=== PATIENT | female | born 1975 | race Caucasian/White ===

== ENCOUNTER 2024-08-13 10:36 | Emergency (ER) | payer OTHER, SELFPAY ==
[2024-08-13 10:47] VITALS: BP 98/61
--- NOTE | 2024-08-13 10:51 | ED.GENMED ---
ED Provider Triage
<Jared Vazquez PA-C - Last Filed: 08/13/24 10:52>
-
Patient seen by provider in Triage?: Seen in Triage
Attestation: A medical screening examination has been initiated by a qualified medical provider. Based on the assessment performed at this time, it has been determined that an emergent medical condition may exist and the patient has been informed
that further medical evaluation and possible additional diagnostic testing may be needed.
HPI: 49-year-old female presenting to the ER for evaluation of palpitations, shortness of breath and chest discomfort that started earlier today. No fevers or infectious symptoms. EKG done in triage shows SVT with a rate of 160 bpm. Patient
brought immediately back into the ER for further evaluation.
GENERAL: Alert , in no apparent distress but does appear uncomfortable.
EYE: No visual abnormalities.
NECK: Trachea midline
ENT: No visible abnormalities.
LUNGS: No acute respiratory distress
NEUROLOGICAL: Alert and oriented
SKIN: Skin intact. No visible changes.
MUSCULOSKELETAL: Moving extremities normally
PSYCH: Normal and appropriate interaction.
This is a medical evaluation conducted in person to initiate diagnostic evaluation and provide initial therapeutics. Please see further documentation by the treating clinician.
History of Present Illness
<Jared Vazquez PA-C - Last Filed: 08/13/24 10:52>
General
Chief Complaint: Chest Pain
Time Seen by Provider: 08/13/24 11:25
<Emiliano Johnson DO - Last Filed: 08/13/24 13:45>
General
Source: patient and spouse
Exam Limitations: none
Nursing documentation reviewed up to this point in time: agreed with
History of Present Illness
History of Present Illness:
49-year-old female presents to the emergency department due to becoming short of breath, pale and diaphoretic while at work. She has a history of SVT in the past while hospitalized. She denies any other symptoms.
Past History
<Emiliano Johnson, DO - Last Filed: 08/13/24 13:45>
Past History
ED Past Medical History: Other (SVT)
ED Past Surgical History: Cholecystectomy
Social History
Tobacco: Non-smoker
Alcohol: None
Drug: None
Personal:
Living: with family
Employment: Employed
Review of Systems
<Emiliano Johnson, DO - Last Filed: 08/13/24 13:45>
Review of Systems
Allergies reviewed?: Yes
All Other Systems: Not applicable
Constitutional: Reports no symptoms
EENT: Reports no symptoms
Respiratory: Reports trouble breathing
Cardiac: Reports no symptoms
ABD/GI: Reports no symptoms
: Reports no symptoms
Musculoskeletal: Reports no symptoms
Skin: Reports no symptoms
Neurological: Reports dizzy
Endocrine: Reports no symptoms
Hematologic/Lymphatic: Reports no symptoms
Psychiatric: Reports no symptoms
Phy Exam
<Emiliano Johnson, DO - Last Filed: 08/13/24 13:45>
Physical Exam
Physical Exam:
Physical Exam
General: no apparent distress, not acutely ill
Neck: supple. no meningeal signs. normal posterior pharynx
Heart: s1/s2 tachycardia, no murmur. equal radial
pulses.
HEENT: Pupils equal round reactive to light, EOMI
Lungs: no acute respiratory distress. clear bilaterally
Abdomen: normal bowel sounds. not tender. no CVAT
Neuro: alert and oriented. no focal neurological deficits cranial nerves II through XII intact
Skin: no rash
Psychiatric: well kept. interactive and cooperative
Extremities: no edema. no calf tenderness. negative homans. good distal pulses
Scores
<Emiliano Johnson, DO - Last Filed: 08/13/24 13:45>
Heart Score for Chest Pain Patients
STEMI patient?: Not applicable
Course
<Jared Vazquez PA-C - Last Filed: 08/13/24 10:52>
Orders/Labs/Results
Orders:
Orders
08/13/24 10:37
EKG [Electrocardiogram (*1)] Urgent
Reason for Study: Chest Pain
EKG- Treatment ONCE
08/13/24 11:24
Complete Blood Count/With Diff Urgent
08/13/24 11:34
Adenosine [Adenocard] 18 mg .ROUTE .STK-MED ONE
08/13/24 11:37
Adenosine [Adenocard] 6 mg IV NOW STA
08/13/24 11:39
Electrocardiogram (*1) Urgent
Reason for Study: Palpitations
EKG- Treatment ONCE
08/13/24 11:45
Comprehensive Metabolic Panel Urgent
TSH Reflex To Free T4 Urgent
Abnormal Lab Results
08/13/24 08/13/24
11:24 11:45
WBC 13.9 H 10^3/uL
(4.8-10.8)
Abs Immat Gran (auto) 0.1 H 10^3/uL
(0-0.05)
Absolute Neuts (auto) 10.3 H 10^3/uL
(1.4-6.5)
Absolute Monos (auto) 0.7 H 10^3/uL
(0.1-0.6)
Immature Gran % 0.6 H %
(0-0.5)
Lymphocytes % 19.6 L %
(20.5-51.1)
Glucose 165 H mg/dl
(70-99)
Total Protein 5.9 L g/dl
(6.3-8.2)
Albumin 3.3 L g/dl
(3.5-5.0)
08/13/24 11:24
08/13/24 11:45
Vital Signs
Initial and Last Documented VS:
Initial Vital Signs
Temp Pulse Resp BP Pulse Ox
98.9 F 160 20 98/61 99
08/13/24 10:47 08/13/24 10:47 08/13/24 10:47 08/13/24 10:47 08/13/24 10:47
Last Documented Vital Signs
Temp Pulse Resp BP Pulse Ox
98.9 F 156 12 99/71 97
08/13/24 10:47 08/13/24 11:37 08/13/24 11:37 08/13/24 11:37 08/13/24 11:37
<Emiliano Johnson, DO - Last Filed: 08/13/24 13:45>
Orders/Labs/Results
Orders:
Orders
08/13/24 10:37
EKG [Electrocardiogram (*1)] Urgent
Reason for Study: Chest Pain
EKG- Treatment ONCE
08/13/24 11:24
Complete Blood Count/With Diff Urgent
08/13/24 11:34
Adenosine [Adenocard] 18 mg .ROUTE .STK-MED ONE
08/13/24 11:37
Adenosine [Adenocard] 6 mg IV NOW STA
08/13/24 11:39
Electrocardiogram (*1) Urgent
Reason for Study: Palpitations
EKG- Treatment ONCE
08/13/24 11:45
Comprehensive Metabolic Panel Urgent
TSH Reflex To Free T4 Urgent
Abnormal Lab Results
08/13/24 08/13/24
11:24 11:45
WBC 13.9 H 10^3/uL
(4.8-10.8)
Abs Immat Gran (auto) 0.1 H 10^3/uL
(0-0.05)
Absolute Neuts (auto) 10.3 H 10^3/uL
(1.4-6.5)
Absolute Monos (auto) 0.7 H 10^3/uL
(0.1-0.6)
Immature Gran % 0.6 H %
(0-0.5)
Lymphocytes % 19.6 L %
(20.5-51.1)
Glucose 165 H mg/dl
(70-99)
Total Protein 5.9 L g/dl
(6.3-8.2)
Albumin 3.3 L g/dl
(3.5-5.0)
08/13/24 11:24
08/13/24 11:45
Vital Signs
Initial and Last Documented VS:
Initial Vital Signs
Temp Pulse Resp BP Pulse Ox
98.9 F 160 20 98/61 99
08/13/24 10:47 08/13/24 10:47 08/13/24 10:47 08/13/24 10:47 08/13/24 10:47
Last Documented Vital Signs
Temp Pulse Resp BP Pulse Ox
98.9 F 156 12 99/71 97
08/13/24 10:47 08/13/24 11:37 08/13/24 11:37 08/13/24 11:37 08/13/24 11:37
<Emiliano Johnson, DO - Last Filed: 08/13/24 13:45>
MDM/Problems Addressed
Differential Diagnosis Includes:
A-fib, SVT
MDM/Problems Addressed:
49-year-old female with SVT, converted after adenosine. Stable for discharge. Afebrile. Mild leukocytosis. No other symptoms.
Chronic conditions affecting care: Arrhythmia
Acute Exacerbation and/or Progression of Chronic Illness: Arrhythmia
<Emiliano Johnson, DO - Last Filed: 08/13/24 13:45>
*Pulse Oximetry
Patient hypoxic: no
*EKG
Interpreted by ED Provider?: Yes
EKG Intrepretation Date: 08/13/24
EKG Intrepretation Time: 10:45
Interpretation: abnormal
Comparison EKG: no comparison EKG present
Heart Rate: 164
Rate: tachycardiac
Rhythm: SVT
[place]: normal axis
Interval: normal interval
QRS Pattern: normal QRS
Ischemia: non-specific ST changes
*Remote Broadcast Technician Interpretation
Rate: tachycardiac
Interpretation: abnormal
Heart Rate: 165
Rhythm: SVT
*Critical Care Note
Total Time (30-74mins, 75-104mins- exclusive of procedures): Not Applicable
<Emiliano Johnson, - Last Filed: 08/13/24 13:45>
Patient Management
Social determinants of health affecting care: Living situation
Escalation/DeEscalation of care consider admission/obs:
Admit not indicated
ED Attending Note
<Jared Vazquez PA-C - Last Filed: 08/13/24 10:52>
-
Portions of this chart may have been created with voice recognition software.� Occasional wrong word or��sound alike� substitutions may have occurred due to the inherent limitations of voice recognition software.
Discharge Plan
Departure
Patient Disposition: Home (Routine Discharge)
Date of Disposition: 08/13/24
Time of Disposition: 13:45
Patient with high blood pressure during this ER visit?: No
Condition: Good
Discharge Problem:
SVT (supraventricular tachycardia)
Instructions: Supraventricular tachycardia (SVT)
Prescriptions:
No Action
docusate sodium 100 mg Capsule
100 mg PO BID Qty: 0 0RF
diltiazem HCl 120 mg Capsule,Extended Release 24hr
120 mg PO DAILY Qty: 30 0RF
amoxicillin-pot clavulanate 875-125 mg Tablet
1 tab PO Q12 Qty: 17 0RF
atorvastatin 40 mg Tablet
40 mg PO QPM Qty: 30 0RF
ibuprofen 800 mg Tablet
800 mg PO Q6 Qty: 15 0RF
fluconazole 200 mg Tablet
200 mg PO DAILY Qty: 8 0RF
rizatriptan 10 mg Tablet,Disintegrating
10 mg PO ONCE PRN PRN (Reason: migraine) Qty: 15 0RF
insulin aspart U-100 [Novolog FlexPen U-100 Insulin] 100 unit/mL (3 mL) Insulin Pen
17 unit SC AC Qty: 15 0RF
insulin glargine [Lantus Solostar U-100 Insulin] 100 unit/mL (3 mL) insulin pen
16 unit SC QPM Qty: 15 0RF
(DME) insulin syringe-needle U-100 [BD Insulin Syringe Ultra-Fine] 1 mL 30 gauge x 1/2' syringe
See Rx Instructions .Route Qty: 100 0RF
Rx Instructions:
As directed
(DME) lancets-blood glucose strips 30 gauge combo pack
See Rx Instructions .Route Qty: 50 0RF
Rx Instructions:
As directed
oxycodone 10 mg tablet
10 mg PO Q4H PRN (Reason: severe pain) Qty: 30 0RF
amoxicillin-pot clavulanate 875-125 mg tablet
1 tab PO BID Qty: 14 0RF
oxycodone-acetaminophen [Percocet] 5-325 mg tablet
1 tab PO Q6HPRN PRN (Reason: pain) Qty: 10 0RF
Referrals:
Loy Sanches MD [Active] - Call in 1-3 days for appt
Interventions
Interventions:
*Risk Screen - Suicide Last Done: 08/13/24 10:47
*General Assessment Last Done: 08/13/24 11:21
*Neglect/Abuse Screening Last Done: 08/13/24 10:47
ED- Fall Risk Assessment Last Done: 08/13/24 11:21
*ED COVID-19 Vaccine History Last Done: 08/13/24 11:21
ED- Cardiac Assessment Last Done: 08/13/24 11:21
Discharge Date and Time
Print Language: BRITISH
[2024-08-13 11:20] VITALS: BMI 34.7
[2024-08-13 11:37] VITALS: BP 99/71
[2024-08-13] MEDS: ADENOCARD 6 MG IV (11:37)
[2024-08-13 11:40] VITALS: BP 104/64
[2024-08-13 12:00] VITALS: BP 105/67
[2024-08-13 12:20] LABS: ALT (SGPT) 17 U/L (0-35); AST (SGOT) 17 U/L (14-36); Albumin 3.3 g/dl (3.5-5.0); Alkaline Phosphatase 68 U/L (38-126); Blood Urea Nitrogen 16 mg/dl (7-17); Calcium 8.9 mg/dl (8.4-10.2); Carbon Dioxide 25 mmol/L (22-30); Chloride 104 mmol/L (98-107); Estimated Creatinine Clearance 109 ml/min; Glucose 165 mg/dl (70-99); Potassium 4.2 mmol/L (3.5-5.1); Sodium 136 mmol/L (135-145); Total Bilirubin 0.8 mg/dl (0.2-1.3); Total Protein 5.9 g/dl (6.3-8.2); eGFR > 60.00
[2024-08-13 12:52] LABS: TSH Reflex To Free T4 2.05 uIU/ml (0.47-4.68)
[2024-08-13 13:00] VITALS: BP 115/73
[2024-08-13 13:36] LABS: % Basophils 0.4 % (0-2); % Eosinophils 0.6 % (0-6); % Immature Granulocytes 0.6 % (0-0.5); % Lymphocytes 19.6 % (20.5-51.1); % Monocytes 4.7 % (1.7-9.3); % Neutrophils 74.1 % (42.2-75.2); Absolute Basophils 0.1 10^3/uL (0-0.2); Absolute Eosinophils 0.1 10^3/uL (0-0.7); Absolute Immature Granulocytes 0.1 10^3/uL (0-0.05); Absolute Lymphocytes 2.7 10^3/uL (1.2-3.4); Absolute Monocytes 0.7 10^3/uL (0.1-0.6); Absolute Neutrophils 10.3 10^3/uL (1.4-6.5); Hematocrit 42.3 % (37.0-47.0); Mean Corp Hgb Conc. 33.1 g/dL (33.0-37.0); Mean Corpuscular Hgb 30.5 pg (27.0-31.0); Mean Corpuscular Volume 92.2 fL (81.0-99.0); Nucleated Red Blood Cells % 0 %; Platelet Count 363 10^3/uL (130-400); Red Blood Cell Count 4.59 10^6/uL (4.20-5.40); Red Cell Dist. Width 13.1 % (11.5-14.5); White Blood Cell Count 13.9 10^3/uL (4.8-10.8)
== END 2024-08-13 14:01 | disposition home or self-care (01) ==
LOC: EMR 10:36
PROVIDERS: EMERGENCY PHYSICIAN Emergency Medicine; FAMILY PHYSICIAN Nurse Practitioner Primary Care
DX: I47.10 Supraventricular tachycardia, unspecified (principal); Z86.79 Personal history of other diseases of the circulatory system; Z90.49 Acquired absence of other specified parts of digestive tract
CPT/HCPCS: 99283; 96374; 80053; 84443; 85025; 93005; J0153

== ENCOUNTER → 2024-09-28 08:02 | Outpatient (REF) | payer OTHER, SELFPAY | LOC: RCS 08:02 | PROVIDERS: ATTENDING PHYSICIAN Physician Assistant Medical; FAMILY PHYSICIAN Nurse Practitioner Family | DX: R07.9 Chest pain, unspecified (principal); I47.10 Supraventricular tachycardia, unspecified | CPT/HCPCS: 93017; 93306 ==

== ENCOUNTER → 2024-10-13 09:43 | Outpatient (REF) | payer OTHER, SELFPAY ==
[2024-10-13 10:09] LABS: HCG, Urine Qualitative Screen Negative
== END ==
LOC: REG 09:43
PROVIDERS: ATTENDING PHYSICIAN Internal Medicine Cardiovascular Disease
DX: N92.6 Irregular menstruation, unspecified (principal)
CPT/HCPCS: 81025